=== PATIENT | male | born 1940 | race Caucasian/White ===

== ENCOUNTER 2017-09-16 01:19 | Emergency (ER) | payer MEDICARE, OTHER ==
--- NOTE | 2017-09-16 03:18 | PD ---
HPI Chief Complaint: Hypertension Time Seen by Provider: 03:03 Travel History International Travel<30 days: No Contact w/Intl Traveler<30days: No History of Present Illness HPI 76-year-old male states that for the past week his blood pressure has been high. He states his doctor adjusted his medications but he does not know which one they adjusted. He states he is on a couple different blood pressure medications but he does not know his doses are the names other than Norvasc is 1 of them. He states he recently drove down here from [place] and was at the [employer] playing cards. He checked his pressure because he felt like it could be getting high given his had that history and given the top number was in the 180s he elected to come here and get it checked out. He states when this happens sometimes he gets a white pill that helps it get better. He denies any current complaints at this time including shortness of breath, chest pain or other acute concerns. He denies specific modifying factors. PFS Past Medical History Narrative Medical Hypertension, diabetes, prostate cancer Past Surgical History Narrative Surgical Prostatectomy, eye surgery Social History Tobacco Use: No Review of Systems Except as stated in HPI: all other systems reviewed are Neg Physical Exam Narrative GENERAL: 76-year-old male in no apparent distress SKIN: Focused skin assessment warm/dry. HEAD: Atraumatic. Normocephalic. EYES: Pupils equal and round. No scleral icterus. No injection or drainage. ENT: No nasal bleeding or discharge. Mucous membranes pink and moist. NECK: Trachea midline. No JVD. CARDIOVASCULAR: Regular rate and rhythm. RESPIRATORY: No accessory muscle use. Clear to auscultation. Breath sounds equal bilaterally. GASTROINTESTINAL: Abdomen soft, non-tender, nondistended. MUSCULOSKELETAL: No obvious deformities. No clubbing. No cyanosis. NEUROLOGICAL: Awake and alert. No obvious cranial nerve deficits. Motor grossly within normal limits. Normal speech. PSYCHIATRIC: Appropriate mood and affect; insight and judgment normal. Data Data Orders Orders Ed Discharge Order (09/16/17 03:06) [facility] Medical Decision Making Medical Screen Exam Complete: Yes Emergency Medical Condition: Yes Differential Diagnosis Blood pressure check, hypertension, medication Narrative Course Patient's blood pressure here while I am in the room is 164/77 and he is currently asymptomatic. He states he has had recent blood work that showed no significant findings. I advised him there is no emergent indication to lower his blood pressure and to continue the regimen his primary recently adjusted for him while keeping a blood pressure log. Patient given return instructions and happy with plan of care. Diagnosis Primary Impression: Hypertension Qualified Codes: I10 - Essential (primary) hypertension Additional Instructions: keep blood pressure log, return as needed Med/Other Pt SpecificInfo: No Change to Meds Disposition: 01 DISCHARGE HOME Condition: Stable Aleyda Gaxiola MD September 16, 2017 03:18
== END 2017-09-16 02:20 | disposition home or self-care (01) ==
LOC: NEPE 01:19
DX: I10 Essential (primary) hypertension (principal); E11.9 Type 2 diabetes mellitus without complications; Z85.46 Personal history of malignant neoplasm of prostate
CPT/HCPCS: 99281